=== PATIENT | male | born 2000 | race Caucasian/White ===

== ENCOUNTER 2022-02-26 14:15 | Day surgery (SDC) | payer MEDICAID ==
[2022-02-26] MEDS ORDERED: Decadron 4 MG INJ IV ONE (14:16)
[2022-02-26] MEDS ORDERED: Xylocaine 1% Vial 30 ML PF IJ ONE (14:16)
[2022-02-26] MEDS ORDERED: DIPRIVAN 200 MG/20 ML IV ONE ×2 (15:54→16:06)
[2022-02-26] MEDS ORDERED: Versed 2 MG/2 ML Injection ONE (16:03)
--- NOTE | 2022-02-26 16:33 | XRAY ---
Indication: Right piriformis injection. Intraoperative fluoroscopy provided for 13 seconds. Single digital spot image submitted for interpretation demonstrates posterior needle tip projecting over the expected right piriformis muscle. Small amount of contrast injected for needle tip placement. Correlate with intraoperative findings/report.
--- NOTE | 2022-02-26 16:43 | XRAY ---
13 seconds fluoroscopy time in surgery for injection of the right piriformis muscle.
[2022-02-26] MEDS ORDERED: Lactated Ringers 1,000 ML IV ONE (16:54)
== END 2022-02-26 16:19 | disposition home or self-care (01) ==
LOC: SDC-PAIN 14:15
PROVIDERS: ATTEND Psychiatry & Neurology Pain Medicine
DX: M79.18 Myalgia, other site (principal); Z79.899 Other long term (current) drug therapy
CPT/HCPCS: 20552; 72170; 77002; J1100; J2001; J2250; J2704; Q9966